=== PATIENT | female | born 1985 | race Hispanic/Latino ===

== ENCOUNTER 2018-10-17 20:39 | Emergency (ER) | payer SELFPAY ==
[2018-10-17] MEDS ORDERED: Morphine 4 MG/ML VIAL ONE ×2 (21:09→21:38)
[2018-10-17] MEDS ORDERED: Ondansetron PF 4 MG/2 ML Vial ONE (21:09)
--- NOTE | 2018-10-17 21:41 | RAD ---
AP PELVIS ONE VIEW: 10/17/18 HISTORY: Pelvic pain following an injury from a fall. The pelvis is rotated to the left. No evidence for acute fracture or dislocation involving the visual ized pelvis. The right pelvis in particular shows no fracture or dislocation. IMPRESSION: The pelvis is rotated to the left which somewhat obscures the left hemipelvis. No visualized fracture or dislocation particularly in the right hemipelvis. POS: [facility]
--- NOTE | 2018-10-17 21:42 | RAD ---
RIGHT HIP TWO VIEWS: 10/17/18 HISTORY: Right hip pain following an injury from a fall. No fracture, dislocation or other acute process. IMPRESSION: Unremarkable right hip. POS: [facility]
[2018-10-17] MEDS ORDERED: Ketorolac Tromethamine 30 MG/ML VIAL ONE (22:08)
--- NOTE | 2018-10-17 23:02 | CT ---
PELVIS CT WITHOUT IV CONTRAST: 10/17/18 HISTORY: Pelvic pain following a mechanical fall and injury. 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 No evidence for acute fractu re or dislocation. Approximately 2.1 cm diameter left ovarian cyst. Trace cul-de-sac fluid. IMPRESSION: No acute pelvic fracture. Small left ovarian cyst and trace cul-de-sac fluid. Very mild degenerative subchondral cystic changes of both femurs. POS: [facility]
--- NOTE | 2018-10-17 23:16 | CT ---
LUMBAR SPINE CT WITHOUT IV CONTRAST: 10/17/18 HISTORY: Low back pain following a mechanical fall. There is a transitional vertebra at the lumbosacral level. There are nondisplaced fractures involving the right L1 and L2 transverse processes. Vertebral bodies show no evidence for compression or burst type fracture. No significant malalignment. There is evidence for central disc herniation at L3-L4 w ith moderate thecal sac and lateral recess stenosis. There is also some central bulging at L4-5 with mild indention of the ventral thecal sac. IMPRESSION: Essentially nondisplaced fractures of the right L1 and L2 transverse processes. Disc protrusion douglas es with some associated stenosis at L3-L4 and generalized bulging at L4-L5 with mild associated centr al and lateral recess stenosis. No vertebral body fracture. No malalignment. No posterior element fra cture. POS: [facility]
[2018-10-17] MEDS ORDERED: HYDROcodone/Acetaminophen 5/325 mg Tablet ONE (23:44)
== END 2018-10-18 00:07 | disposition home or self-care (01) ==
LOC: ERS 20:39
DX: S32.019A Unspecified fracture of first lumbar vertebra, initial encounter for closed fracture (principal); S32.029A Unspecified fracture of second lumbar vertebra, initial encounter for closed fracture; W18.2XXA Fall in (into) shower or empty bathtub, initial encounter
CPT/HCPCS: 72131; 72170; 72192; 96374; 96375; J1885; J2270; J2405